=== PATIENT | male | born 1975 | race Caucasian/White ===

== ENCOUNTER 2021-02-03 11:52 | Inpatient (IN) | payer OTHER ==
[2021-02-03 15:31] VITALS: BMI 26.1
[2021-02-03] MEDS ORDERED: ACETAMINOPHEN 325 MG TABLET (FP) PO PRN ×2 (15:42)
[2021-02-03] MEDS ORDERED: MENTHOL/PHENOL 1 EACH UD MM PRN (15:42)
[2021-02-03] MEDS ORDERED: METHOCARBAMOL 500 MG TABLET PO PRN (15:42)
[2021-02-03] MEDS ORDERED: MAG HYDROX/AL HYDROX/SIMETH 30 ML UNIT-DOSE CUP PO PRN (15:42)
[2021-02-03] MEDS ORDERED: MAGNESIUM HYDROX 2400MG/30ML ORAL SUSPENSION 30 ML CUP PO PRN (15:42)
[2021-02-03] MEDS ORDERED: ONDANSETRON *ODT* 4 MG TABLET SL PRN (15:42)
[2021-02-03] MEDS ORDERED: IBUPROFEN 400 MG TABLET (FP) PO PRN (15:42)
[2021-02-03] MEDS ORDERED: MAGNESIUM CITRATE 300 ML BOTTLE PO PRN (15:42)
[2021-02-03] MEDS ORDERED: BISMUTH SUBSALICYLATE 524 MG/30 ML UD PO PRN (15:42)
[2021-02-03] MEDS ORDERED: NICOTINE POLACRILEX 2 MG GUM BUC PRN (15:42)
[2021-02-03] MEDS: hydrOXYzine PAMOATE 25 MG CAPSULE (FP) PO SCH ×2 (17:36→22:16)
[2021-02-03] MEDS ORDERED: MELATONIN 5 MG TABLETS PO SCH (22:00)
[2021-02-03] MEDS: CLOTRIMAZOLE 1% CREAM 15 GM TUBE TP SCH (22:16)
[2021-02-03] MEDS: THIAMINE HCL 100 MG TABLET (FP) PO SCH (22:16)
[2021-02-03] MEDS: CALCIUM ACETATE/AL SULFATE TOP 1.9 GM/PACKET PACKET TP SCH (23:30)
[2021-02-04] MEDS: hydrOXYzine PAMOATE 25 MG CAPSULE (FP) PO SCH ×5 (05:13→22:20)
[2021-02-04] MEDS ORDERED: METHADONE HCL 10 MG TABLET PO ONE (08:40)
[2021-02-04] MEDS ORDERED: METHADONE 80 MG, METHADONE 10 MG, METHADONE 5 MG PO ONE (08:47)
[2021-02-04] MEDS ORDERED: METHADONE HCL 10 MG TABLET ONE (09:15)
[2021-02-04] MEDS ORDERED: METHADONE HCL 40 MG DISPERSABLE TABLET ONE (09:15)
[2021-02-04] MEDS ORDERED: METHADONE HCL 5 MG TABLET ONE (09:15)
[2021-02-04] MEDS: PRENATAL VITAMINS W/ FOLIC ACID TABLET (FP) PO SCH (10:22)
[2021-02-04 10:23] LABS: HEMATOCRIT 35.3 % (35.4-49); MCHC 33.9 g/dl (32.0-35.9); MEAN CELL VOLUME 79.8 fl (80-96); MEAN PLT VOLUME 8.4 fl (7.5-11.1); PLATELET COUNT 236 K/MM3 (134-434); RBC 4.43 M/mm3 (4.00-5.60); RDW 14.7 % (11.9-15.9); WHITE BLOOD COUNT 6.1 K/mm3 (4.0-10.0)
[2021-02-04] MEDS: CLOTRIMAZOLE 1% CREAM 15 GM TUBE TP SCH ×2 (10:24→22:20)
[2021-02-04] MEDS: CALCIUM ACETATE/AL SULFATE TOP 1.9 GM/PACKET PACKET TP SCH ×2 (10:24→22:20)
[2021-02-04 10:30] LABS: ALBUMIN 3.4 g/dl (3.4-5.0); BLOOD UREA NITROGEN 12.6 mg/dL (7-18); CALCIUM 8.5 mg/dL (8.5-10.1)
[2021-02-04 10:35] LABS: BILIRUBIN,TOTAL 0.5 mg/dL (0.2-1); TOT PROT 7.1 g/dl (6.4-8.2)
[2021-02-04] MEDS ORDERED: diazePAM 5 MG TABLET PO PRN (10:37)
[2021-02-04] MEDS: diazePAM 5 MG TABLET PO SCH ×3 (11:34→22:30)
[2021-02-04] MEDS: MELATONIN 5 MG TABLETS PO PRN (22:20)
[2021-02-04] MEDS: THIAMINE HCL 100 MG TABLET (FP) PO SCH (22:21)
[2021-02-05] MEDS ORDERED: METHADONE HCL 10 MG TABLET ONE (05:12)
[2021-02-05] MEDS ORDERED: METHADONE HCL 40 MG DISPERSABLE TABLET ONE (05:12)
[2021-02-05] MEDS ORDERED: METHADONE HCL 5 MG TABLET ONE (05:13)
[2021-02-05] MEDS: hydrOXYzine PAMOATE 25 MG CAPSULE (FP) PO SCH ×6 (05:54→23:00)
[2021-02-05] MEDS: METHADONE 80 MG, METHADONE 10 MG, METHADONE 5 MG PO SCH (05:55)
[2021-02-05] MEDS: diazePAM 5 MG TABLET PO SCH ×4 (05:55→22:59)
[2021-02-05] MEDS ORDERED: METHADONE HCL 10 MG TABLET PO SCH (06:00)
[2021-02-05] MEDS: PRENATAL VITAMINS W/ FOLIC ACID TABLET (FP) PO SCH (10:17)
[2021-02-05] MEDS: CLOTRIMAZOLE 1% CREAM 15 GM TUBE TP SCH ×2 (10:17→23:00)
[2021-02-05] MEDS: CALCIUM ACETATE/AL SULFATE TOP 1.9 GM/PACKET PACKET TP SCH ×2 (10:19→23:00)
[2021-02-05] MEDS: BACITRACIN 0.9 GM PACKET TP SCH (14:19)
[2021-02-05] MEDS: THIAMINE HCL 100 MG TABLET (FP) PO SCH (22:59)
[2021-02-06] MEDS ORDERED: METHADONE HCL 10 MG TABLET ONE (04:09)
[2021-02-06] MEDS ORDERED: METHADONE HCL 40 MG DISPERSABLE TABLET ONE (04:10)
[2021-02-06] MEDS ORDERED: METHADONE HCL 5 MG TABLET ONE (04:10)
[2021-02-06] MEDS: METHADONE 80 MG, METHADONE 10 MG, METHADONE 5 MG PO SCH (05:27)
[2021-02-06] MEDS: diazePAM 5 MG TABLET PO SCH ×3 (05:28→22:30)
[2021-02-06] MEDS: hydrOXYzine PAMOATE 25 MG CAPSULE (FP) PO SCH ×5 (05:29→22:29)
[2021-02-06] MEDS: CLOTRIMAZOLE 1% CREAM 15 GM TUBE TP SCH ×2 (10:34→22:32)
[2021-02-06] MEDS: BACITRACIN 0.9 GM PACKET TP SCH (10:34)
[2021-02-06] MEDS: PRENATAL VITAMINS W/ FOLIC ACID TABLET (FP) PO SCH (10:34)
[2021-02-06] MEDS: CALCIUM ACETATE/AL SULFATE TOP 1.9 GM/PACKET PACKET TP SCH ×2 (10:35→22:32)
[2021-02-06] MEDS: THIAMINE HCL 100 MG TABLET (FP) PO SCH (22:29)
[2021-02-06] MEDS: MELATONIN 5 MG TABLETS PO PRN (22:32)
[2021-02-07] MEDS ORDERED: METHADONE HCL 40 MG DISPERSABLE TABLET ONE (04:10)
[2021-02-07] MEDS ORDERED: METHADONE HCL 10 MG TABLET ONE (04:10)
[2021-02-07] MEDS ORDERED: METHADONE HCL 5 MG TABLET ONE (04:11)
[2021-02-07] MEDS: hydrOXYzine PAMOATE 25 MG CAPSULE (FP) PO SCH ×5 (05:31→22:27)
[2021-02-07] MEDS: METHADONE 80 MG, METHADONE 10 MG, METHADONE 5 MG PO SCH (05:31)
[2021-02-07] MEDS: diazePAM 5 MG TABLET PO SCH ×2 (05:31→18:08)
[2021-02-07] MEDS: BACITRACIN 0.9 GM PACKET TP SCH (10:45)
[2021-02-07] MEDS: PRENATAL VITAMINS W/ FOLIC ACID TABLET (FP) PO SCH (10:45)
[2021-02-07] MEDS: CLOTRIMAZOLE 1% CREAM 15 GM TUBE TP SCH ×2 (10:45→22:27)
[2021-02-07] MEDS: CALCIUM ACETATE/AL SULFATE TOP 1.9 GM/PACKET PACKET TP SCH ×2 (10:45→22:27)
[2021-02-07] MEDS: MELATONIN 5 MG TABLETS PO PRN (22:27)
[2021-02-07] MEDS: THIAMINE HCL 100 MG TABLET (FP) PO SCH (22:27)
[2021-02-08] MEDS ORDERED: METHADONE HCL 10 MG TABLET ONE (04:30)
[2021-02-08] MEDS ORDERED: METHADONE HCL 40 MG DISPERSABLE TABLET ONE (04:30)
[2021-02-08] MEDS ORDERED: METHADONE HCL 5 MG TABLET ONE (04:31)
[2021-02-08] MEDS: METHADONE 80 MG, METHADONE 10 MG, METHADONE 5 MG PO SCH (05:16)
[2021-02-08] MEDS: hydrOXYzine PAMOATE 25 MG CAPSULE (FP) PO SCH ×5 (05:16→22:25)
[2021-02-08] MEDS ORDERED: diazePAM 5 MG TABLET PO ONE (06:00)
[2021-02-08] MEDS: CALCIUM ACETATE/AL SULFATE TOP 1.9 GM/PACKET PACKET TP SCH ×2 (11:02→22:37)
[2021-02-08] MEDS: CLOTRIMAZOLE 1% CREAM 15 GM TUBE TP SCH ×2 (11:03→22:25)
[2021-02-08] MEDS: BACITRACIN 0.9 GM PACKET TP SCH (11:04)
[2021-02-08] MEDS: PRENATAL VITAMINS W/ FOLIC ACID TABLET (FP) PO SCH (11:04)
[2021-02-08] MEDS: MELATONIN 5 MG TABLETS PO PRN (22:24)
[2021-02-08] MEDS: THIAMINE HCL 100 MG TABLET (FP) PO SCH (22:25)
[2021-02-09] MEDS ORDERED: METHADONE HCL 40 MG DISPERSABLE TABLET ONE (04:32)
[2021-02-09] MEDS ORDERED: METHADONE HCL 10 MG TABLET ONE (04:32)
[2021-02-09] MEDS ORDERED: METHADONE HCL 5 MG TABLET ONE (04:33)
[2021-02-09] MEDS: METHADONE 80 MG, METHADONE 10 MG, METHADONE 5 MG PO SCH (05:16)
[2021-02-09] MEDS: hydrOXYzine PAMOATE 25 MG CAPSULE (FP) PO SCH ×3 (05:17→13:48)
[2021-02-09] MEDS: CLOTRIMAZOLE 1% CREAM 15 GM TUBE TP SCH ×2 (10:18→22:34)
[2021-02-09] MEDS: CALCIUM ACETATE/AL SULFATE TOP 1.9 GM/PACKET PACKET TP SCH ×2 (10:18→22:35)
[2021-02-09] MEDS: BACITRACIN 0.9 GM PACKET TP SCH (10:18)
[2021-02-09] MEDS: PRENATAL VITAMINS W/ FOLIC ACID TABLET (FP) PO SCH (10:19)
[2021-02-09] MEDS: THIAMINE HCL 100 MG TABLET (FP) PO SCH (22:34)
[2021-02-09] MEDS: MELATONIN 5 MG TABLETS PO PRN (22:34)
[2021-02-10] MEDS ORDERED: METHADONE HCL 40 MG DISPERSABLE TABLET ONE (04:23)
[2021-02-10] MEDS ORDERED: METHADONE HCL 10 MG TABLET ONE (04:23)
[2021-02-10] MEDS ORDERED: METHADONE HCL 5 MG TABLET ONE (04:24)
[2021-02-10] MEDS: METHADONE 80 MG, METHADONE 10 MG, METHADONE 5 MG PO SCH (06:34)
[2021-02-10] MEDS ORDERED: ALBUTEROL SO4 HFA INHALER IH PRN (09:12)
[2021-02-10] MEDS: BACITRACIN 0.9 GM PACKET TP SCH (10:47)
[2021-02-10] MEDS: PRENATAL VITAMINS W/ FOLIC ACID TABLET (FP) PO SCH (10:47)
[2021-02-10] MEDS: CLOTRIMAZOLE 1% CREAM 15 GM TUBE TP SCH (10:47)
[2021-02-10] MEDS: CALCIUM ACETATE/AL SULFATE TOP 1.9 GM/PACKET PACKET TP SCH (10:47)
[2021-02-10 11:07] VITALS: BP 102/63; PULSE 73; TEMP 97.9
== END 2021-02-10 11:11 | disposition home or self-care (01) | DRG 773 ==
LOC: YASAS 11:52 → Y6N 16:41
PROVIDERS: ADMIT Allergy & Immunology; ATTEND Allergy & Immunology
PROC: HZ2ZZZZ Detoxification Services for Substance Abuse Treatment (ICD-10-PCS; principal; 2021-02-03)
DX: F13.230 Sedative, hypnotic or anxiolytic dependence with withdrawal, uncomplicated (principal); F11.20 Opioid dependence, uncomplicated; F10.20 Alcohol dependence, uncomplicated; F14.20 Cocaine dependence, uncomplicated; F31.9 Bipolar disorder, unspecified; F17.210 Nicotine dependence, cigarettes, uncomplicated; F19.24 Other psychoactive substance dependence with psychoactive substance-induced mood disorder; F39 Unspecified mood [affective] disorder; F32.9 Major depressive disorder, single episode, unspecified; F41.9 Anxiety disorder, unspecified; G43.909 Migraine, unspecified, not intractable, without status migrainosus; J45.909 Unspecified asthma, uncomplicated; B35.3 Tinea pedis; B18.2 Chronic viral hepatitis C; Z56.0 Unemployment, unspecified; Z59.0 Homelessness
CPT/HCPCS: 36415; 80053; 85027; 86780; 93005; 93010; C9803; U0003; U0005

== ENCOUNTER 2021-04-03 15:08 | Inpatient (IN) | payer OTHER ==
[2021-04-03 16:07] VITALS: BMI 24.0
[2021-04-03] MEDS ORDERED: guaiFENesin 200 MG/10 ML 10 ML UNIT-DOSE CUPS PO PRN (19:54)
[2021-04-03] MEDS ORDERED: LOPERAMIDE HCL 2 MG CAPSULE PO PRN (19:54)
[2021-04-03] MEDS ORDERED: NALOXONE HCL 0.4 MG/ML VIAL IM PRN (19:54)
[2021-04-03] MEDS ORDERED: MAG HYDROX/AL HYDROX/SIMETH 30 ML UNIT-DOSE CUP PO PRN (19:54)
[2021-04-03] MEDS ORDERED: ACETAMINOPHEN 325 MG TABLET (FP) PO PRN (19:54)
[2021-04-03] MEDS ORDERED: P-EPHED 60MG/TRIPROLIDI 2.5MG TABLET PO PRN (19:54)
[2021-04-03] MEDS ORDERED: MAGNESIUM CITRATE 300 ML BOTTLE PO PRN (19:54)
[2021-04-03] MEDS ORDERED: NICOTINE POLACRILEX 2 MG GUM BC PRN (19:54)
[2021-04-03] MEDS ORDERED: MAGNESIUM HYDROX 2400MG/30ML ORAL SUSPENSION 30 ML CUP PO PRN (19:54)
[2021-04-03] MEDS ORDERED: IBUPROFEN 400 MG TABLET (FP) PO PRN (19:54)
[2021-04-03] MEDS: THIAMINE HCL 100 MG TABLET (FP) PO SCH (22:02)
[2021-04-03] MEDS: MELATONIN 5 MG TABLETS PO SCH (22:03)
[2021-04-03] MEDS: NICOTINE 21 MG/24 HOURS TOPICAL PATCH TD SCH (22:04)
[2021-04-04] MEDS ORDERED: METHADONE HCL 10 MG TABLET PO SCH (10:15)
[2021-04-04] MEDS ORDERED: METHADONE HCL 40 MG DISPERSABLE TABLET ONE (11:09)
[2021-04-04] MEDS ORDERED: METHADONE HCL 5 MG TABLET ONE (11:09)
[2021-04-04] MEDS ORDERED: METHADONE HCL 10 MG TABLET ONE (11:09)
[2021-04-04] MEDS: NICOTINE 21 MG/24 HOURS TOPICAL PATCH TD SCH (11:10)
[2021-04-04] MEDS: METHADONE 80 MG, METHADONE 10 MG, METHADONE 5 MG PO SCH (11:10)
[2021-04-04] MEDS: PRENATAL VITAMINS W/ FOLIC ACID TABLET (FP) PO SCH (11:10)
[2021-04-04 13:02] LABS: PH,URINE 5.5 (5.0-8.0); URINE APPEARANCE CLEAR; URINE BILIRUBIN NEGATIVE (NEGATIVE); URINE COLOR DK YELLOW; URINE GLUCOSE (UA) NEGATIVE (NEGATIVE); URINE KETONE NEGATIVE (NEGATIVE); URINE LEUK ESTERASE NEGATIVE (NEGATIVE); URINE NITRITE NEGATIVE (NEGATIVE); URINE PROTEIN NEGATIVE (NEGATIVE)
[2021-04-04 13:16] LABS: HEMATOCRIT 35.9 % (35.4-49); HEMOGLOBIN 11.8 GM/dL (11.7-16.9); MCH 26.4 pg (25.7-33.7); MCHC 32.9 g/dl (32.0-35.9); MEAN CELL VOLUME 80.2 fl (80-96); MEAN PLT VOLUME 8.7 fl (7.5-11.1); PLATELET COUNT 152 10^3/uL (134-434); RBC 4.48 M/mm3 (4.00-5.60); WHITE BLOOD COUNT 3.6 K/mm3 (4.0-10.0)
[2021-04-04 13:28] LABS: ALBUMIN 3.8 g/dl (3.4-5.0); BLOOD UREA NITROGEN 18.4 mg/dL (7-18); CALCIUM 9.5 mg/dL (8.5-10.1)
[2021-04-04 13:31] LABS: CREATININE 1.1 mg/dL (0.55-1.3)
[2021-04-04 13:32] LABS: BILIRUBIN,TOTAL 0.7 mg/dL (0.2-1); TOT PROT 7.9 g/dl (6.4-8.2)
[2021-04-04] MEDS ORDERED: hydrOXYzine PAMOATE 50 MG CAPSULE (FP) PO PRN (20:47)
[2021-04-04] MEDS: MELATONIN 5 MG TABLETS PO SCH (21:03)
[2021-04-04] MEDS: THIAMINE HCL 100 MG TABLET (FP) PO SCH (21:03)
[2021-04-04] MEDS: traZODone HCL 100 MG TABLET (FP) PO SCH (21:04)
[2021-04-05] MEDS ORDERED: METHADONE HCL 40 MG DISPERSABLE TABLET ONE (05:28)
[2021-04-05] MEDS ORDERED: METHADONE HCL 10 MG TABLET ONE (05:29)
[2021-04-05] MEDS ORDERED: METHADONE HCL 5 MG TABLET ONE (05:29)
[2021-04-05] MEDS: METHADONE 80 MG, METHADONE 10 MG, METHADONE 5 MG PO SCH (06:30)
[2021-04-05 10:12] LABS: HIV INTERPRETATION NEGATIVE (NEGATIVE)
[2021-04-05] MEDS: PRENATAL VITAMINS W/ FOLIC ACID TABLET (FP) PO SCH (10:14)
[2021-04-05] MEDS: ARIPiprazole 5 MG TABLET PO SCH (10:14)
[2021-04-05] MEDS: NICOTINE 21 MG/24 HOURS TOPICAL PATCH TD SCH (10:15)
[2021-04-05] MEDS: THIAMINE HCL 100 MG TABLET (FP) PO SCH (21:58)
[2021-04-05] MEDS: MELATONIN 5 MG TABLETS PO SCH (21:58)
[2021-04-05] MEDS: traZODone HCL 100 MG TABLET (FP) PO SCH (21:59)
[2021-04-06] MEDS ORDERED: METHADONE HCL 10 MG TABLET ONE (03:51)
[2021-04-06] MEDS ORDERED: METHADONE HCL 40 MG DISPERSABLE TABLET ONE (03:51)
[2021-04-06] MEDS ORDERED: METHADONE HCL 5 MG TABLET ONE (03:51)
[2021-04-06] MEDS: METHADONE 80 MG, METHADONE 10 MG, METHADONE 5 MG PO SCH (06:40)
[2021-04-06 06:55] VITALS: BP 100/60; PULSE 61; TEMP 98.1
[2021-04-06] MEDS: PRENATAL VITAMINS W/ FOLIC ACID TABLET (FP) PO SCH (09:38)
[2021-04-06] MEDS: ARIPiprazole 5 MG TABLET PO SCH (09:39)
== END 2021-04-06 10:25 | disposition left against medical advice (07) | DRG 770 ==
LOC: YASAS 15:08 → Y3W 20:21
PROVIDERS: ADMIT Allergy & Immunology; ATTEND Allergy & Immunology
PROC: HZ42ZZZ Group Counseling for Substance Abuse Treatment, Cognitive-Behavioral (ICD-10-PCS; principal; 2021-04-03)
DX: F11.20 Opioid dependence, uncomplicated (principal); F14.20 Cocaine dependence, uncomplicated; F17.210 Nicotine dependence, cigarettes, uncomplicated; F19.24 Other psychoactive substance dependence with psychoactive substance-induced mood disorder; F39 Unspecified mood [affective] disorder; F41.9 Anxiety disorder, unspecified; F32.9 Major depressive disorder, single episode, unspecified; F90.9 Attention-deficit hyperactivity disorder, unspecified type; B18.2 Chronic viral hepatitis C; Z86.59 Personal history of other mental and behavioral disorders; Z56.0 Unemployment, unspecified; Z59.0 Homelessness
CPT/HCPCS: 36415; 80053; 81003; 85027; 86780; 87389; C9803; U0003; U0005

== ENCOUNTER 2021-05-23 11:47 | Inpatient (IN) | payer OTHER ==
[2021-05-23] MEDS ORDERED: NICOTINE POLACRILEX 2 MG GUM BUC PRN (22:06)
[2021-05-23] MEDS ORDERED: MAGNESIUM HYDROX 2400MG/30ML ORAL SUSPENSION 30 ML CUP PO PRN (22:06)
[2021-05-23] MEDS ORDERED: METHOCARBAMOL 500 MG TABLET PO PRN (22:06)
[2021-05-23] MEDS ORDERED: hydrOXYzine PAMOATE 25 MG CAPSULE (FP) PO PRN (22:06)
[2021-05-23] MEDS ORDERED: MAGNESIUM CITRATE 300 ML BOTTLE PO PRN (22:06)
[2021-05-23] MEDS ORDERED: ACETAMINOPHEN 325 MG TABLET (FP) PO PRN ×2 (22:06)
[2021-05-23] MEDS ORDERED: MAG HYDROX/AL HYDROX/SIMETH 30 ML UNIT-DOSE CUP PO PRN (22:06)
[2021-05-23] MEDS ORDERED: ONDANSETRON *ODT* 4 MG TABLET SL PRN (22:06)
[2021-05-23] MEDS ORDERED: IBUPROFEN 400 MG TABLET (FP) PO PRN (22:06)
[2021-05-23] MEDS ORDERED: MENTHOL/PHENOL 1 EACH UD MM PRN (22:06)
[2021-05-23] MEDS ORDERED: BISMUTH SUBSALICYLATE 524 MG/30 ML PO PRN (22:06)
[2021-05-23 22:42] VITALS: BMI 22.8
[2021-05-23] MEDS: BACITRACIN 0.9 GM PACKET TP SCH (23:27)
[2021-05-24] MEDS ORDERED: methaDONE HCL 10 MG TABLET PO SCH (09:45)
[2021-05-24] MEDS: PRENATAL VITAMINS W/ FOLIC ACID TABLET (FP) PO SCH ×2 (09:47→09:53)
[2021-05-24] MEDS: BACITRACIN 0.9 GM PACKET TP SCH ×3 (09:48→21:09)
[2021-05-24] MEDS: CLOTRIMAZOLE 1% CREAM TP SCH ×3 (09:48→21:09)
[2021-05-24] MEDS: NICOTINE 14 MG/24 HOURS TOPICAL PATCH TD SCH (09:49)
[2021-05-24] MEDS ORDERED: methaDONE HCL 40 MG DISPERSABLE TABLET ONE (10:17)
[2021-05-24] MEDS ORDERED: methaDONE HCL 10 MG TABLET ONE (10:17)
[2021-05-24 13:16] LABS: HEMATOCRIT 34.9 % (35.4-49); HEMOGLOBIN 11.8 GM/dL (11.7-16.9); MCHC 33.8 g/dl (32.0-35.9); MEAN CELL VOLUME 80.1 fl (80-96); MEAN PLT VOLUME 8.6 fl (7.5-11.1); PLATELET COUNT 204 10^3/uL (134-434); RBC 4.35 M/mm3 (4.00-5.60); RDW 16.2 % (11.9-15.9); WHITE BLOOD COUNT 5.9 K/mm3 (4.0-10.0)
[2021-05-24 13:17] LABS: CALCIUM 8.6 mg/dL (8.5-10.1)
[2021-05-24 13:20] LABS: ALBUMIN 3.3 g/dl (3.4-5.0); BLOOD UREA NITROGEN 17.1 mg/dL (7-18)
[2021-05-24 13:22] LABS: BILIRUBIN,TOTAL 0.5 mg/dL (0.2-1); TOT PROT 7.7 g/dl (6.4-8.2)
[2021-05-24 13:23] LABS: CREATININE 1.3 mg/dL (0.55-1.3)
[2021-05-24] MEDS ORDERED: SUVOREXANT 10 MG TABLET PO PRN (14:20)
[2021-05-24] MEDS ORDERED: hydrOXYzine PAMOATE 25 MG CAPSULE (FP) PO PRN (14:21)
[2021-05-24] MEDS: THIAMINE HCL 100 MG TABLET (FP) PO SCH (21:07)
[2021-05-24] MEDS: hydrOXYzine PAMOATE 25 MG CAPSULE (FP) PO PRN (21:08)
[2021-05-24] MEDS: SUVOREXANT 10 MG TABLET PO PRN (21:08)
[2021-05-24] MEDS: traZODone HCL 50 MG TABLET (FP) PO SCH (21:10)
[2021-05-24] MEDS ORDERED: MELATONIN 5 MG TABLETS PO SCH (22:00)
[2021-05-25] MEDS ORDERED: methaDONE HCL 40 MG DISPERSABLE TABLET ONE (03:27)
[2021-05-25] MEDS ORDERED: methaDONE HCL 10 MG TABLET ONE (03:27)
[2021-05-25] MEDS: ARIPiprazole 5 MG TABLET PO SCH (09:29)
[2021-05-25] MEDS: NICOTINE 14 MG/24 HOURS TOPICAL PATCH TD SCH (09:29)
[2021-05-25] MEDS: BACITRACIN 0.9 GM PACKET TP SCH ×2 (09:29→21:46)
[2021-05-25] MEDS: PRENATAL VITAMINS W/ FOLIC ACID TABLET (FP) PO SCH (09:29)
[2021-05-25] MEDS: CLOTRIMAZOLE 1% CREAM TP SCH ×2 (09:30→21:47)
[2021-05-25] MEDS ORDERED: PT OWN MED DRAWER 7, Y5N ONE (19:13)
[2021-05-25] MEDS: THIAMINE HCL 100 MG TABLET (FP) PO SCH (21:47)
[2021-05-25] MEDS: SUVOREXANT 10 MG TABLET PO PRN (21:47)
[2021-05-25] MEDS: traZODone HCL 50 MG TABLET (FP) PO SCH (21:47)
[2021-05-25] MEDS: hydrOXYzine PAMOATE 25 MG CAPSULE (FP) PO PRN (21:52)
[2021-05-26] MEDS ORDERED: methaDONE HCL 40 MG DISPERSABLE TABLET ONE (07:01)
[2021-05-26] MEDS ORDERED: methaDONE HCL 10 MG TABLET ONE (07:01)
[2021-05-26] MEDS: PRENATAL VITAMINS W/ FOLIC ACID TABLET (FP) PO SCH (09:28)
[2021-05-26] MEDS: NICOTINE 14 MG/24 HOURS TOPICAL PATCH TD SCH (09:29)
[2021-05-26] MEDS: ARIPiprazole 5 MG TABLET PO SCH (09:29)
[2021-05-26] MEDS: CLOTRIMAZOLE 1% CREAM TP SCH ×2 (09:29→21:04)
[2021-05-26] MEDS: BACITRACIN 0.9 GM PACKET TP SCH ×2 (09:29→21:04)
[2021-05-26] MEDS: THIAMINE HCL 100 MG TABLET (FP) PO SCH (21:00)
[2021-05-26] MEDS: hydrOXYzine PAMOATE 25 MG CAPSULE (FP) PO PRN (21:01)
[2021-05-26] MEDS: SUVOREXANT 10 MG TABLET PO PRN (21:02)
[2021-05-26] MEDS: traZODone HCL 50 MG TABLET (FP) PO SCH (21:03)
[2021-05-27] MEDS ORDERED: methaDONE HCL 40 MG DISPERSABLE TABLET ONE (03:02)
[2021-05-27] MEDS ORDERED: methaDONE HCL 10 MG TABLET ONE (03:02)
[2021-05-27] MEDS ORDERED: PT OWN MED DRAWER 7, Y5N ONE (08:23)
[2021-05-27] MEDS: ARIPiprazole 5 MG TABLET PO SCH (09:41)
[2021-05-27] MEDS: CLOTRIMAZOLE 1% CREAM TP SCH ×2 (09:41→21:31)
[2021-05-27] MEDS: BACITRACIN 0.9 GM PACKET TP SCH ×2 (09:41→21:31)
[2021-05-27] MEDS: NICOTINE 14 MG/24 HOURS TOPICAL PATCH TD SCH (09:41)
[2021-05-27] MEDS: PRENATAL VITAMINS W/ FOLIC ACID TABLET (FP) PO SCH (09:41)
[2021-05-27] MEDS: hydrOXYzine PAMOATE 25 MG CAPSULE (FP) PO PRN ×2 (09:42→21:18)
[2021-05-27] MEDS: THIAMINE HCL 100 MG TABLET (FP) PO SCH (21:16)
[2021-05-27] MEDS: traZODone HCL 50 MG TABLET (FP) PO SCH (21:16)
[2021-05-27] MEDS: SUVOREXANT 10 MG TABLET PO PRN (21:17)
[2021-05-28] MEDS ORDERED: methaDONE HCL 10 MG TABLET ONE (02:19)
[2021-05-28] MEDS ORDERED: methaDONE HCL 40 MG DISPERSABLE TABLET ONE (02:19)
[2021-05-28] MEDS: PRENATAL VITAMINS W/ FOLIC ACID TABLET (FP) PO SCH (09:40)
[2021-05-28] MEDS: ARIPiprazole 5 MG TABLET PO SCH (09:40)
[2021-05-28] MEDS: NICOTINE 14 MG/24 HOURS TOPICAL PATCH TD SCH (09:41)
[2021-05-28] MEDS: CLOTRIMAZOLE 1% CREAM TP SCH ×2 (09:41→22:37)
[2021-05-28] MEDS: BACITRACIN 0.9 GM PACKET TP SCH ×2 (09:41→22:37)
[2021-05-28] MEDS: THIAMINE HCL 100 MG TABLET (FP) PO SCH (21:06)
[2021-05-28] MEDS: traZODone HCL 50 MG TABLET (FP) PO SCH (21:06)
[2021-05-28] MEDS: hydrOXYzine PAMOATE 25 MG CAPSULE (FP) PO PRN (21:09)
[2021-05-29] MEDS ORDERED: methaDONE HCL 40 MG DISPERSABLE TABLET ONE (04:58)
[2021-05-29] MEDS ORDERED: methaDONE HCL 10 MG TABLET ONE (04:58)
[2021-05-29 07:03] VITALS: BP 98/74; PULSE 60; TEMP 96.9
[2021-05-29] MEDS: NICOTINE 14 MG/24 HOURS TOPICAL PATCH TD SCH (09:50)
[2021-05-29] MEDS: PRENATAL VITAMINS W/ FOLIC ACID TABLET (FP) PO SCH (09:50)
[2021-05-29] MEDS: ARIPiprazole 5 MG TABLET PO SCH (09:51)
[2021-05-29] MEDS: CLOTRIMAZOLE 1% CREAM TP SCH (09:52)
[2021-05-29] MEDS: BACITRACIN 0.9 GM PACKET TP SCH (09:52)
== END 2021-05-29 10:00 | disposition other institution (70) | DRG 772 ==
LOC: YASAS 11:47 → Y5N 20:57
PROVIDERS: ADMIT Allergy & Immunology; ATTEND Allergy & Immunology
PROC: HZ42ZZZ Group Counseling for Substance Abuse Treatment, Cognitive-Behavioral (ICD-10-PCS; principal; 2021-05-23)
DX: F11.20 Opioid dependence, uncomplicated (principal); F14.20 Cocaine dependence, uncomplicated; F10.20 Alcohol dependence, uncomplicated; F13.20 Sedative, hypnotic or anxiolytic dependence, uncomplicated; F17.210 Nicotine dependence, cigarettes, uncomplicated; F31.9 Bipolar disorder, unspecified; F19.282 Other psychoactive substance dependence with psychoactive substance-induced sleep disorder; F19.24 Other psychoactive substance dependence with psychoactive substance-induced mood disorder; F41.9 Anxiety disorder, unspecified; G43.909 Migraine, unspecified, not intractable, without status migrainosus; J45.909 Unspecified asthma, uncomplicated; B35.3 Tinea pedis; Z86.19 Personal history of other infectious and parasitic diseases; Z56.0 Unemployment, unspecified; Z59.0 Homelessness
CPT/HCPCS: 36415; 80053; 85027; 86780; C9803; U0003; U0005

== ENCOUNTER 2021-10-07 10:10 | Inpatient (IN) | payer OTHER ==
[2021-10-07 17:41] VITALS: BMI 59.4
[2021-10-07] MEDS ORDERED: MAG HYDROX/AL HYDROX/SIMETH 30 ML UNIT-DOSE CUP PO PRN (17:57)
[2021-10-07] MEDS ORDERED: ACETAMINOPHEN 325 MG TABLET (FP) PO PRN (17:57)
[2021-10-07] MEDS ORDERED: MAGNESIUM HYDROX 2400MG/30ML ORAL SUSPENSION 30 ML CUP PO PRN (17:57)
[2021-10-07] MEDS ORDERED: MAGNESIUM CITRATE 300 ML BOTTLE PO PRN (17:57)
[2021-10-07] MEDS ORDERED: IBUPROFEN 400 MG TABLET (FP) PO PRN (17:57)
[2021-10-07] MEDS ORDERED: LOPERAMIDE HCL 2 MG CAPSULE PO PRN (17:57)
[2021-10-07] MEDS ORDERED: guaiFENesin 200 MG/10 ML 10 ML UNIT-DOSE CUPS PO PRN (17:57)
[2021-10-07] MEDS ORDERED: P-EPHED 60MG/TRIPROLIDI 2.5MG TABLET PO PRN (17:57)
[2021-10-07] MEDS ORDERED: CLINDAMYCIN HCL 150 MG CAPSULE (FP) PO SCH (18:00)
[2021-10-07] MEDS: THIAMINE HCL 100 MG TABLET (FP) PO SCH (21:15)
[2021-10-07] MEDS ORDERED: MELATONIN 5 MG TABLETS PO SCH (22:00)
[2021-10-07] MEDS: CLINDAMYCIN HCL 150 MG CAPSULE (FP) PO SCH (23:50)
[2021-10-08] MEDS: CLINDAMYCIN HCL 150 MG CAPSULE (FP) PO SCH ×4 (06:53→23:39)
[2021-10-08] MEDS ORDERED: methaDONE HCL 10 MG TABLET PO SCH (11:00)
[2021-10-08] MEDS ORDERED: methaDONE HCL 10 MG TABLET ONE (11:06)
[2021-10-08] MEDS ORDERED: methaDONE HCL 40 MG DISPERSABLE TABLET ONE (11:06)
[2021-10-08] MEDS: methaDONE 80 MG, methaDONE 10 MG PO SCH (11:10)
[2021-10-08] MEDS: PRENATAL VITAMINS W/ FOLIC ACID TABLET (FP) PO SCH (11:11)
[2021-10-08] MEDS: BACITRACIN 0.9 GM PACKET TP SCH ×2 (11:12→23:39)
[2021-10-08] MEDS: NICOTINE 7 MG/24 HOURS TOPICAL PATCH TD SCH (11:12)
[2021-10-08 11:53] LABS: CALCIUM 8.8 mg/dL (8.5-10.1)
[2021-10-08 11:54] LABS: ALBUMIN 3.8 g/dl (3.4-5.0); BLOOD UREA NITROGEN 21.1 mg/dL (7-18)
[2021-10-08 11:57] LABS: CREATININE 1.3 mg/dL (0.55-1.3)
[2021-10-08 11:59] LABS: BILIRUBIN,TOTAL 0.5 mg/dL (0.2-1); TOT PROT 7.8 g/dl (6.4-8.2)
[2021-10-08 12:04] LABS: HEMATOCRIT 36.7 % (35.4-49); HEMOGLOBIN 11.4 GM/dL (11.7-16.9); MCH 25.6 pg (25.7-33.7); MCHC 31.2 g/dl (32.0-35.9); MEAN CELL VOLUME 82.1 fl (80-96); MEAN PLT VOLUME 9.8 fl (7.5-11.1); PLATELET COUNT 158 10^3/uL (134-434); RBC 4.47 M/mm3 (4.00-5.60); RDW 15.8 % (11.9-15.9)
[2021-10-08 15:17] LABS: EPI CELLS 24 /uL (0-25.1); HYALINE CASTS 10 /uL (0-3.1); URINE APPEARANCE CLEAR; URINE BACTERIA 30 /uL (0-1359); URINE BILIRUBIN 1+ (NEGATIVE); URINE COLOR DK YELLOW; URINE GLUCOSE (UA) NEGATIVE (NEGATIVE); URINE KETONE TRACE (NEGATIVE); URINE LEUK ESTERASE TRACE (NEGATIVE); URINE NITRITE NEGATIVE (NEGATIVE); URINE PROTEIN 1+ (NEGATIVE); URINE RBC 17 /uL (0-23.9); URINE WBC 24 /uL (0-25.8)
[2021-10-08 17:16] LABS: URINE CRYSTALS CALCIUM OXALATE /hpf
[2021-10-08] MEDS: hydrOXYzine PAMOATE 50 MG CAPSULE (FP) PO PRN ×2 (18:12→23:39)
[2021-10-08] MEDS: SUVOREXANT 10 MG TABLET PO PRN (23:38)
[2021-10-08] MEDS: THIAMINE HCL 100 MG TABLET (FP) PO SCH (23:39)
[2021-10-09] MEDS ORDERED: methaDONE HCL 40 MG DISPERSABLE TABLET ONE (03:36)
[2021-10-09] MEDS ORDERED: methaDONE HCL 10 MG TABLET ONE (03:36)
[2021-10-09] MEDS: methaDONE 80 MG, methaDONE 10 MG PO SCH (06:38)
[2021-10-09] MEDS: CLINDAMYCIN HCL 150 MG CAPSULE (FP) PO SCH ×4 (06:38→23:50)
[2021-10-09] MEDS: ARIPiprazole 5 MG TABLET PO SCH (09:27)
[2021-10-09] MEDS: PRENATAL VITAMINS W/ FOLIC ACID TABLET (FP) PO SCH (09:27)
[2021-10-09] MEDS: NICOTINE 7 MG/24 HOURS TOPICAL PATCH TD SCH (09:28)
[2021-10-09] MEDS: hydrOXYzine PAMOATE 50 MG CAPSULE (FP) PO PRN (12:21)
[2021-10-09] MEDS: BACITRACIN 0.9 GM PACKET TP SCH ×2 (12:21→21:24)
[2021-10-09] MEDS: SUVOREXANT 10 MG TABLET PO PRN (21:23)
[2021-10-09] MEDS: THIAMINE HCL 100 MG TABLET (FP) PO SCH (21:24)
[2021-10-10] MEDS ORDERED: methaDONE HCL 10 MG TABLET ONE (03:12)
[2021-10-10] MEDS ORDERED: methaDONE HCL 40 MG DISPERSABLE TABLET ONE (03:12)
[2021-10-10] MEDS: CLINDAMYCIN HCL 150 MG CAPSULE (FP) PO SCH ×4 (06:32→23:06)
[2021-10-10] MEDS: methaDONE 80 MG, methaDONE 10 MG PO SCH (06:33)
[2021-10-10] MEDS: NICOTINE 7 MG/24 HOURS TOPICAL PATCH TD SCH (10:03)
[2021-10-10] MEDS: ARIPiprazole 5 MG TABLET PO SCH (10:03)
[2021-10-10] MEDS: PRENATAL VITAMINS W/ FOLIC ACID TABLET (FP) PO SCH (10:04)
[2021-10-10] MEDS: BACITRACIN 0.9 GM PACKET TP SCH ×2 (10:04→23:07)
[2021-10-10] MEDS: hydrOXYzine PAMOATE 50 MG CAPSULE (FP) PO PRN (17:26)
[2021-10-10] MEDS: THIAMINE HCL 100 MG TABLET (FP) PO SCH (21:28)
[2021-10-10] MEDS: SUVOREXANT 10 MG TABLET PO PRN (21:30)
[2021-10-11] MEDS ORDERED: methaDONE HCL 10 MG TABLET ONE (04:08)
[2021-10-11] MEDS ORDERED: methaDONE HCL 40 MG DISPERSABLE TABLET ONE (04:08)
[2021-10-11] MEDS: CLINDAMYCIN HCL 150 MG CAPSULE (FP) PO SCH ×4 (06:16→22:59)
[2021-10-11] MEDS: methaDONE 80 MG, methaDONE 10 MG PO SCH (06:17)
[2021-10-11] MEDS: ARIPiprazole 5 MG TABLET PO SCH (09:42)
[2021-10-11] MEDS: PRENATAL VITAMINS W/ FOLIC ACID TABLET (FP) PO SCH (09:43)
[2021-10-11] MEDS: BACITRACIN 0.9 GM PACKET TP SCH ×2 (09:43→21:17)
[2021-10-11] MEDS: NICOTINE 7 MG/24 HOURS TOPICAL PATCH TD SCH (09:43)
[2021-10-11] MEDS: THIAMINE HCL 100 MG TABLET (FP) PO SCH (21:16)
[2021-10-11] MEDS: hydrOXYzine PAMOATE 50 MG CAPSULE (FP) PO PRN (21:16)
[2021-10-12] MEDS ORDERED: methaDONE HCL 10 MG TABLET ONE (03:51)
[2021-10-12] MEDS ORDERED: methaDONE HCL 40 MG DISPERSABLE TABLET ONE (03:51)
[2021-10-12] MEDS: methaDONE 80 MG, methaDONE 10 MG PO SCH (06:24)
[2021-10-12] MEDS: CLINDAMYCIN HCL 150 MG CAPSULE (FP) PO SCH ×4 (06:24→23:38)
[2021-10-12] MEDS: hydrOXYzine PAMOATE 50 MG CAPSULE (FP) PO PRN ×3 (06:25→21:18)
[2021-10-12] MEDS: BACITRACIN 0.9 GM PACKET TP SCH ×2 (10:06→21:18)
[2021-10-12] MEDS: ARIPiprazole 5 MG TABLET PO SCH (10:06)
[2021-10-12] MEDS: NICOTINE 7 MG/24 HOURS TOPICAL PATCH TD SCH (10:06)
[2021-10-12] MEDS: PRENATAL VITAMINS W/ FOLIC ACID TABLET (FP) PO SCH (10:06)
[2021-10-12] MEDS: THIAMINE HCL 100 MG TABLET (FP) PO SCH (21:16)
[2021-10-13] MEDS ORDERED: methaDONE HCL 10 MG TABLET ONE (03:45)
[2021-10-13] MEDS ORDERED: methaDONE HCL 40 MG DISPERSABLE TABLET ONE (03:45)
[2021-10-13] MEDS: hydrOXYzine PAMOATE 50 MG CAPSULE (FP) PO PRN ×3 (04:20→17:47)
[2021-10-13] MEDS: methaDONE 80 MG, methaDONE 10 MG PO SCH (06:32)
[2021-10-13] MEDS: CLINDAMYCIN HCL 150 MG CAPSULE (FP) PO SCH ×4 (07:31→23:45)
[2021-10-13] MEDS: ARIPiprazole 5 MG TABLET PO SCH (09:28)
[2021-10-13] MEDS: BACITRACIN 0.9 GM PACKET TP SCH ×2 (09:28→21:22)
[2021-10-13] MEDS: PRENATAL VITAMINS W/ FOLIC ACID TABLET (FP) PO SCH (09:28)
[2021-10-13] MEDS: NICOTINE 7 MG/24 HOURS TOPICAL PATCH TD SCH (09:28)
[2021-10-13] MEDS: THIAMINE HCL 100 MG TABLET (FP) PO SCH (21:21)
[2021-10-13] MEDS: SUVOREXANT 10 MG TABLET PO PRN (21:21)
[2021-10-14] MEDS ORDERED: methaDONE HCL 10 MG TABLET ONE (03:51)
[2021-10-14] MEDS ORDERED: methaDONE HCL 40 MG DISPERSABLE TABLET ONE (03:52)
[2021-10-14] MEDS: CLINDAMYCIN HCL 150 MG CAPSULE (FP) PO SCH ×4 (06:14→23:43)
[2021-10-14] MEDS: methaDONE 80 MG, methaDONE 10 MG PO SCH (06:14)
[2021-10-14] MEDS: ARIPiprazole 5 MG TABLET PO SCH (09:59)
[2021-10-14] MEDS: BACITRACIN 0.9 GM PACKET TP SCH ×2 (09:59→21:49)
[2021-10-14] MEDS: NICOTINE 7 MG/24 HOURS TOPICAL PATCH TD SCH (09:59)
[2021-10-14] MEDS: PRENATAL VITAMINS W/ FOLIC ACID TABLET (FP) PO SCH (09:59)
[2021-10-14] MEDS: hydrOXYzine PAMOATE 50 MG CAPSULE (FP) PO PRN (18:37)
[2021-10-14] MEDS: SUVOREXANT 10 MG TABLET PO PRN (21:48)
[2021-10-14] MEDS: THIAMINE HCL 100 MG TABLET (FP) PO SCH (21:48)
[2021-10-15] MEDS ORDERED: methaDONE HCL 40 MG DISPERSABLE TABLET ONE (04:11)
[2021-10-15] MEDS ORDERED: methaDONE HCL 10 MG TABLET ONE (04:11)
[2021-10-15] MEDS: CLINDAMYCIN HCL 150 MG CAPSULE (FP) PO SCH ×4 (06:21→23:46)
[2021-10-15] MEDS: methaDONE 80 MG, methaDONE 10 MG PO SCH (06:21)
[2021-10-15 06:35] VITALS: TEMP 97.1
[2021-10-15] MEDS: NICOTINE 7 MG/24 HOURS TOPICAL PATCH TD SCH (10:07)
[2021-10-15] MEDS: PRENATAL VITAMINS W/ FOLIC ACID TABLET (FP) PO SCH (10:07)
[2021-10-15] MEDS: BACITRACIN 0.9 GM PACKET TP SCH ×2 (10:07→21:42)
[2021-10-15] MEDS: ARIPiprazole 5 MG TABLET PO SCH (10:07)
[2021-10-15] MEDS: hydrOXYzine PAMOATE 50 MG CAPSULE (FP) PO PRN (11:10)
[2021-10-15] MEDS: THIAMINE HCL 100 MG TABLET (FP) PO SCH (21:45)
[2021-10-15] MEDS ORDERED: ARIPiprazole 5 MG TABLET PO SCH (22:00)
[2021-10-15] MEDS ORDERED: SUVOREXANT 15 MG TABLET PO PRN (22:00)
[2021-10-16] MEDS: CLINDAMYCIN HCL 150 MG CAPSULE (FP) PO SCH (06:15)
[2021-10-16 06:31] VITALS: BP 98/64; PULSE 67
[2021-10-16] MEDS: NICOTINE 7 MG/24 HOURS TOPICAL PATCH TD SCH (09:26)
[2021-10-16] MEDS: PRENATAL VITAMINS W/ FOLIC ACID TABLET (FP) PO SCH (09:26)
== END 2021-10-16 09:35 | disposition home or self-care (01) | DRG 772 ==
LOC: YASAS 10:10 → Y3E 17:35
PROVIDERS: ADMIT Allergy & Immunology; ATTEND Allergy & Immunology
PROC: HZ42ZZZ Group Counseling for Substance Abuse Treatment, Cognitive-Behavioral (ICD-10-PCS; principal; 2021-10-07)
DX: F11.20 Opioid dependence, uncomplicated (principal); F10.20 Alcohol dependence, uncomplicated; F14.20 Cocaine dependence, uncomplicated; F17.210 Nicotine dependence, cigarettes, uncomplicated; F19.282 Other psychoactive substance dependence with psychoactive substance-induced sleep disorder; F19.24 Other psychoactive substance dependence with psychoactive substance-induced mood disorder; F31.9 Bipolar disorder, unspecified; F41.9 Anxiety disorder, unspecified; F90.9 Attention-deficit hyperactivity disorder, unspecified type; J45.909 Unspecified asthma, uncomplicated; L03.113 Cellulitis of right upper limb; B18.2 Chronic viral hepatitis C; Z56.0 Unemployment, unspecified; Z59.00 Homelessness unspecified
CPT/HCPCS: 36415; 80053; 81003; 85027; 86780; C9803; U0003; U0005

== ENCOUNTER 2022-02-26 14:22 | Inpatient (IN) | payer OTHER ==
[2022-02-26 14:49] VITALS: BMI 25.6
[2022-02-26] MEDS ORDERED: IBUPROFEN 600 MG TABLET (FP) PO PRN (18:52)
[2022-02-26] MEDS ORDERED: NICOTINE POLACRILEX 2 MG GUM BUC PRN (18:52)
[2022-02-26] MEDS ORDERED: MAG HYDROX/AL HYDROX/SIMETH 30 ML UNIT-DOSE CUP PO PRN (18:52)
[2022-02-26] MEDS ORDERED: LOPERAMIDE HCL 2 MG CAPSULE PO PRN (18:52)
[2022-02-26] MEDS ORDERED: BISMUTH SUBSALICYLATE 524 MG/30 ML PO PRN (18:52)
[2022-02-26] MEDS ORDERED: BENZOCAINE/MENTHOL (CHLORASEPTIC ) LOZENGE MM PRN (18:52)
[2022-02-26] MEDS ORDERED: NICOTINE 10 MG CARTRIDGE (INHALER) IH PRN (18:52)
[2022-02-26] MEDS ORDERED: MAGNESIUM HYDROX 2400MG/30ML ORAL SUSPENSION 30 ML CUP PO PRN (18:52)
[2022-02-26] MEDS ORDERED: ONDANSETRON *ODT* 4 MG TABLET SL PRN (18:52)
[2022-02-26] MEDS ORDERED: MELATONIN 5 MG TABLETS PO PRN (18:52)
[2022-02-26] MEDS ORDERED: DICYCLOMINE HCL 10 MG CAPSULE PO PRN (18:52)
[2022-02-26] MEDS ORDERED: IBUPROFEN 400 MG TABLET (FP) PO PRN (18:52)
[2022-02-26] MEDS ORDERED: METHOCARBAMOL 500 MG TABLET PO PRN (18:52)
[2022-02-26] MEDS ORDERED: MAGNESIUM CITRATE 300 ML BOTTLE PO PRN (18:52)
[2022-02-26] MEDS ORDERED: hydrOXYzine PAMOATE 25 MG CAPSULE (FP) PO PRN (18:52)
[2022-02-26] MEDS ORDERED: ACETAMINOPHEN 325 MG TABLET (FP) PO PRN ×2 (18:52)
[2022-02-26] MEDS ORDERED: THIAMINE HCL 100 MG TABLET (FP) PO SCH (22:00)
[2022-02-27] MEDS ORDERED: methaDONE HCL 10 MG TABLET PO SCH (09:30)
[2022-02-27] MEDS ORDERED: PRENATAL VITAMINS W/ FOLIC ACID TABLET (FP) PO SCH (10:00)
[2022-02-27] MEDS ORDERED: methaDONE HCL 10 MG TABLET ONE (10:28)
[2022-02-27] MEDS ORDERED: methaDONE HCL 40 MG DISPERSABLE TABLET ONE (10:28)
[2022-02-27] MEDS ORDERED: methaDONE 40 MG, methaDONE 20 MG PO ONE (10:30)
[2022-02-27 13:00] VITALS: BP 124/78; PULSE 68; TEMP 97.1
[2022-02-28] MEDS ORDERED: methaDONE 40 MG, methaDONE 20 MG PO SCH (06:00)
== END 2022-02-27 14:01 | disposition home or self-care (01) | DRG 773 ==
LOC: YASAS 14:22 → Y3N 19:33 → UNDOADMIN 19:33 → Y3N 19:54
PROVIDERS: ADMIT Allergy & Immunology; ATTEND Surgery
PROC: HZ2ZZZZ Detoxification Services for Substance Abuse Treatment (ICD-10-PCS; principal; 2022-02-26)
DX: F10.230 Alcohol dependence with withdrawal, uncomplicated (principal); F11.20 Opioid dependence, uncomplicated; F14.20 Cocaine dependence, uncomplicated; F12.20 Cannabis dependence, uncomplicated; F17.210 Nicotine dependence, cigarettes, uncomplicated; F19.24 Other psychoactive substance dependence with psychoactive substance-induced mood disorder; F31.9 Bipolar disorder, unspecified; F41.9 Anxiety disorder, unspecified; B18.2 Chronic viral hepatitis C; Z28.310 Unvaccinated for COVID-19; Z56.0 Unemployment, unspecified; Z59.00 Homelessness unspecified
CPT/HCPCS: C9803-CS; U0003; U0005